=== PATIENT | female | born 1995 | race Caucasian/White ===

== ENCOUNTER 2023-10-25 08:40 | Emergency (ER) | payer OTHER, SELFPAY ==
[2023-10-25 08:45] VITALS: PULSE 110; O2SAT 94
[2023-10-25 08:47] VITALS: BP 120/67; PULSE 103; O2SAT 94
[2023-10-25 08:50] VITALS: BP 120/67; PULSE 87; RESP 18; TEMP 37.2; O2SAT 95; BMI 43.9
--- NOTE | 2023-10-25 08:56 | ED_ITS ---
HPI - General Adult General Chief complaint: Abdominal Pain Stated complaint: food poisoning, rash on face Time Seen by Provider: 10/25/23 08:44 Source: patient Mode of arrival: Ambulatory History of Present Illness HPI narrative: Patient is an otherwise healthy 28-year-old female who is here for evaluation of approximately 24 hours of multiple episodes of nausea vomiting and diarrhea. No recent travel. No recent antibiotics. She states that she noticed a rash on her face after vomiting yesterday. No fevers. She states that she was having some generalized abdominal discomfort. No urinary symptoms. Related Data Previous Rx's Medication Instructions Recorded ondansetron 4 mg disintegrating 4 mg PO Q6H PRN nausea and 10/25/23 tablet vomiting #10 tabs Allergies Allergy/AdvReac Type Severity Reaction Status Date / Time droperidol AdvReac Anxiety Verified 10/25/23 08:54 Review of Systems Constitutional Constitutional: Reports system reviewed and no additional complaints, except as documented Cardiovascular Cardiovascular: Reports system reviewed and no additional complaints, except as documented Respiratory Respiratory: Reports system reviewed and no additional complaints, except as documented Gastrointestinal Gastrointestinal: Reports system reviewed and no additional complaints, except as documented Integumentary/Breasts Skin/Breast: Reports system reviewed and no additional complaints, except as documented Neurologic Neurologic: Reports system reviewed and no additional complaints, except as documented Patient History Social History Smoking Status: Current some day smoker Smoking Status: Current some day smoker alcohol intake frequency: 0-2 drinks per day Substance Use Type: marijuana Exam Initial Vital Signs Initial Vital Signs: Vital Signs Temperature 99.0 F 10/25/23 08:50 Pulse Rate 87 10/25/23 08:50 Respiratory Rate 18 10/25/23 08:50 Blood Pressure 120/67 10/25/23 08:50 Pulse Oximetry 95 10/25/23 08:50 Oxygen Delivery Method Room Air 10/25/23 08:50 HENMT Head: normal to inspection and normocephalic Face and sinus: other (Petechiae around face) Resp Effort & Inspection: normal respiratory effort Auscultation: clear to auscultation bilaterally Cardio Rate: regular rate Rhythm: regular rhythm GI Inspection: normal to inspection Skin Other: Petechiae on the face Neuro General: patient alert, patient awake, patient oriented x3 and moves all extremities Extrem General: normal to inspection Course Orders Ordered: ED Orders 10/25/23 08:50 Ictotest Urine Stat Urine Microscopic Stat Discontinued Medications Ondansetron HCl (Ondansetron 4 Mg Odt) 4 mg SL NOW ONE Stop: 10/25/23 08:57 Last Admin: 10/25/23 09:07 Dose: 4 mg Documented By: LAURA Vital Signs Vital signs: Vital Signs - 8 hr 10/25/23 08:50 Temperature 99.0 F Pulse Rate 87 Respiratory Rate 18 Blood Pressure 120/67 Pulse Oximetry 95 Oxygen Delivery Method Room Air Medical Decision Making Lab Data Labs: Lab Results 10/25/23 Range/Units 08:50 Ur Bilirubin Confirm Negative (Negative) Urine RBC 0-1/hpf (0-5/HPF) Urine WBC 0-1/hpf (0-5/HPF) Ur Squamous Epith Cells 10-30 /hpf H (0-5/HPF) Ur Transition Epith Cell 1-5/hpf (0-5/HPF) Urine Bacteria Moderate (10-30) H (None) Urine Mucus 1+ H (Negative) Ur Culture Indicated? Cult not indicated Vol Urine Centrifuged 10ml (spun) Point of Care Testing Test Results Negative Urine Dip Bedside Urine Glucose Negative Bedside Urine Bilirubin + 1 Bedside Urine Ketone - Negative Urine Specific [place] 1.020 Bedside Urine Occult Blood - Negative Bedside Urine pH 6.0 Bedside Urine Protein +/- 15 Bedside Urine Urobilinogen - Negative Bedside Urine Nitrite - Negative Bedside Urine Leukocytes - Negative Esterase Point of care testing: Point of Care Testing Test Results Negative Urine Dip Bedside Urine Glucose Negative Bedside Urine Bilirubin + 1 Bedside Urine Ketone - Negative Urine Specific [place] 1.020 Bedside Urine Occult Blood - Negative Bedside Urine pH 6.0 Bedside Urine Protein +/- 15 Bedside Urine Urobilinogen - Negative Bedside Urine Nitrite - Negative Bedside Urine Leukocytes - Negative Esterase [facility] Narrative Medical decision making narrative: Patient has a benign exam. She was not clinically dehydrated. Vital signs are unremarkable. Urine is unremarkable. She is petechiae on her face most likely because of the episodes of vomiting. This is not appear to be an infectious rash. She was tolerating oral intake after medications here in the ER. Will discharge home with Zofran. She was given return precautions. She expressed understanding and agreement. Discharge Plan Departure Patient Disposition: Home Clinical Impression: Nausea, vomiting, and diarrhea, Petechiae Instructions: Diarrhea, Nausea and Vomiting-Adult Activity Restrictions/Additional Instructions: Be sure that you were increasing your fluid intake by drinking small amounts more frequently. Your symptoms should improve in the next couple days. Return to the emergency department for new or worsening symptoms. Prescriptions: New ondansetron 4 mg tablet,disintegrating 4 mg PO Q6H PRN (Reason: nausea and vomiting) Qty: 10 0RF Stand Alone Forms: Patient Portal/API
[2023-10-25 09:00] VITALS: PULSE 91; O2SAT 94
[2023-10-25 09:01] VITALS: BP 122/56; PULSE 91; O2SAT 94
[2023-10-25] MEDS: ONDANSETRON 4 MG ODT SL (09:07)
[2023-10-25 09:30] VITALS: BP 107/60; PULSE 89; O2SAT 97
[2023-10-25 09:31] LABS: Bacteria Urine Moderate (10-30); Culture Indicated Urine Cult Not Indicated; Mucus Urine 1+ (Negative); RBC Urine 0-1/HPF (0-5/HPF); Squamous Epithelial Cell Urine 10-30 /HPF (0-5/HPF); Transitional Epi Cells Urine 1-5/HPF (0-5/HPF); Urine Volume 10mL (spun); WBC Urine 0-1/HPF (0-5/HPF)
[2023-10-25 09:32] LABS: Ictotest Urine Negative (Negative)
== END 2023-10-25 09:48 | disposition home or self-care (01) ==
PROVIDERS: Emergency Provider Emergency Medicine
DX: R11.2 Nausea with vomiting, unspecified (principal); R19.7 Diarrhea, unspecified; R23.3 Spontaneous ecchymoses
CPT/HCPCS: 81003; 81015; 81025; 99283